=== PATIENT | female | born 2000 | race Two or more races ===

== ENCOUNTER 2023-07-30 13:21 | Emergency (ER) | payer BC ==
[~2023-07-30] VITALS: Ht 157.5 cm; Wt 68.0 kg
[2023-07-30] MEDS ORDERED: LACTOBACILLUS ACIDOPHILUS 1 CAP CAP PO ONE (14:30)
[2023-07-30] MEDS ORDERED: 0.9 % SODIUM CHLORIDE 1,000 ML IV ONE (14:30)
[2023-07-30] MEDS ORDERED: FAMOTIDINE/PF 20 MG/2 ML VIAL IV ONE (14:30)
[2023-07-30] MEDS ORDERED: METRONIDAZOLE/SODIUM CHLORIDE 500 MG/100 ML PIGGYBACK IV ONE (14:45)
[2023-07-30 14:53] LABS: HEMATOCRIT 32.3 % (36.0-45.00); HEMOGLOBIN 11.2 g/dL (12.0-15.00); MEAN CELL VOLUME 82.5 fL (80.00-100.00); MEAN CORPUSCULAR HEMOGLOBIN 28.6 pg (27.00-32.0); MEAN CORPUSCULAR HGB CONC 34.6 g/dl (32.0-36.0); PLATELET COUNT 434 K/uL (150-450); RED BLOOD COUNT 3.92 M/uL (4.00-6.00); RED CELL DISTRIBUTION WIDTH 15.8 % (11.5-14.5)
[2023-07-30 15:18] LABS: CALCIUM 9.4 mg/dL (8.5-10.1); CREATININE SERUM 0.78 mg/dL (0.55-1.02); GFR 91.52; POTASSIUM 3.41 mEq/L (3.5-5.1)
[2023-07-30 15:36] LABS: PH,URINE 6.5 (5.0-8.0); URINE APPEARANCE Clear; URINE BILIRRUBIN Negative (NEGATIVE); URINE BLOOD Negative; URINE COLOR Yellow; URINE GLUCOSE Negative (NEGATIVE); URINE LEUKOCYTE Negative; URINE NITRATE Negative; URINE PROTEIN Negative (NEGATIVE); URINE UROBILINOGEN 0.2 E.U./dl
[2023-07-30 15:40] LABS: URINE BACTERIA 1103.7 uL (0.0-1933); URINE EPITHELIAL CELLS 44.8 uL (0.0-38.8); URINE RBC 5.1 uL (0.0-20.8); URINE WBC 19.3 uL (0.0-23.2)
[2023-07-30] MEDS ORDERED: PEPCID AC20 MG PO (17:34)
[2023-07-30] MEDS ORDERED: CIPRO500 MG PO (17:34)
[2023-07-30] MEDS ORDERED: LEVSIN0.125 MG PO (17:34)
[2023-07-30] MEDS ORDERED: INTESTINEX680 M1 PO (17:34)
[2023-07-30] MEDS ORDERED: METRONIDAZOLE500 MG PO (17:34)
== END 2023-07-30 17:53 | disposition home or self-care (01) ==
LOC: ER 13:21
PROVIDERS: Nurse Practitioner Family
DX: K52.89 Other specified noninfective gastroenteritis and colitis (principal); R10.84 Generalized abdominal pain; Z20.822 Contact with and (suspected) exposure to COVID-19